=== PATIENT | female | born 1980 | race Caucasian/White ===

== ENCOUNTER 2016-11-16 10:22 | Emergency (ER) | payer MEDICAID ==
[2016-11-16] MEDS ORDERED: METOCLOPRAMIDE 10 MG/2 ML VIAL ONE (10:47)
[2016-11-16] MEDS ORDERED: KETOROLAC 30 MG/ML VIAL ONE (10:47)
[2016-11-16] MEDS ORDERED: DIPHENHYDRAMINE 50 MG/ML VIAL ONE (10:47)
[2016-11-16] MEDS ORDERED: SODIUM CHLORIDE 0.9% 1,000 ML ONE (10:47)
[2016-11-16] MEDS ORDERED: HALOPERIDOL 5 MG/ML VIAL ONE (11:40)
== END 2016-11-16 12:40 | disposition home or self-care (01) ==
LOC: ER 10:22
DX: G43.001 Migraine without aura, not intractable, with status migrainosus (principal)
CPT/HCPCS: 96361; 96374; 96375